=== PATIENT | female | born 1940 | race Caucasian/White ===

== ENCOUNTER 2017-02-23 11:59 | Observation (INO) ==
[2017-02-23] MEDS ORDERED: Acetaminophen 325 MG TABLET PO ONE (12:30)
--- NOTE | 2017-02-23 12:32 | Emergency Department Note ---
Disposition Clinical Impression: Elevated troponin UTI (urinary tract infection) Qualifiers: Urinary tract infection type: acute cystitis Hematuria presence: with hematuria Qualified Code(s): N30.01 - Acute cystitis with hematuria Fever Qualifiers: Fever type: unspecified Qualified Code(s): R50.9 - Fever, unspecified Disposition: Admitted As Inpatient Condition: Good Referrals: Jose Khan MD [Primary Care Provider] - Forms: ED Satisfaction Letter Time of Disposition: 16:52 SOB HPI - General Chief Complaint: ED Shortness of Breath/Dyspnea Stated Complaint: diff breathing/fever Time Seen by Provider: 02/23/17 12:25 Source: EMS Mode of arrival: EMS Limitations: altered mental status (Her baseline is that she is confused and bedridden.) Nursing Notes Reviewed: Yes Vital Signs Reviewed: Yes - History of Present Illness 76-year-old white female sent from the senior living to be evaluated for difficulty breathing. He was noted to be tachypneic when she was evaluated this morning. The patient is confused at baseline, oriented to person only. She is nonambulatory. It is difficult to tell whether her answers are not reliable or not. She does know her name and date of . She denies chest pain. She admits to shortness of breath and weakness. She denies abdominal pain. Pt Subjective Complaint: shortness of breath Onset (ago): day(s) (Onset today) Context: other (Found at senior living with difficulty breathing.) Severity: moderate Consistency/Duration: constant Improves with: oxygen Worsens with: lying flat Associated symptoms: Reports: fever Treatment prior to arrival: oxygen Cough present: No - Related Data Home oxygen amount: none Home Medications Medication Instructions Recorded Confirmed ALPRAZolam [Xanax 0.5 MG Tablet] 0.5 mg PO BID 02/23/17 02/23/17 Albuterol Neb [Proventil Neb] 2.5 mg IH Q4HR PRN 02/23/17 02/23/17 Amantadine HCl [Amantadine] 100 mg PO BID 02/23/17 02/23/17 Ascorbate Calcium [Vitamin C] 500 mg PO DAILY 02/23/17 02/23/17 Bisacodyl [Dulcolax] 10 mg RC DAILY PRN 02/23/17 02/23/17 Calcium Carbonate [Calcium] 600 mg PO BID 02/23/17 02/23/17 Carbidopa/Levodopa 1 each PO TID 02/23/17 02/23/17 [Carbidopa-Levodopa 10-100 Tab] Cholecalciferol (D-3) [Vitamin D] 1,000 unit PO DAILY 02/23/17 02/23/17 Famotidine [Pepcid] 20 mg PO BID 02/23/17 02/23/17 HYDROcodone/Acet 5/325 mg [[place] 1 tab PO Q6H PRN 02/23/17 02/23/17 5-325 mg] Loratadine [Claritin] 10 mg PO DAILY 02/23/17 02/23/17 Lovastatin [Mevacor] 20 mg PO DAILY 02/23/17 02/23/17 Magnesium Hydroxide [Milk of 20 ml PO HS PRN 02/23/17 02/23/17 Magnesia] Metoprolol [Lopressor] 12.5 mg PO BID 02/23/17 02/23/17 Mv W-Ca/Iron/FA/Lutein/Hrb#179 1 each PO DAILY 02/23/17 02/23/17 [Surya Multivit For Women Caplet] Nitroglycerin [Nitrostat] 0.4 mg SL ONCE 02/23/17 02/23/17 [place]-3S/Dha/Epa/Fish Oil [Fish 1 each PO DAILY 02/23/17 02/23/17 Oil [place]-3 Softgel] Sennosides [Senna] 8.6 mg PO BID 02/23/17 02/23/17 Venlafaxine HCl [Venlafaxine HCl 37.5 mg PO BID 02/23/17 02/23/17 ER] risperiDONE [Risperdal] 2 mg PO BID 02/23/17 02/23/17 Allergies Allergy/AdvReac Type Severity Reaction Status Date / Time cefuroxime [From Ceftin] Allergy Hives Verified 02/23/17 12:16 Penicillins [PCN] Allergy Hives Verified 02/23/17 12:16 Limitations: ROS unobtainable due to patients medical condition (Patient is demented and confused at baseline.) Past Medical History - Past Medical History Medical history: Reports: COPD, dementia, hypertension Psychiatric history: Reports: anxiety, depression - Social History Smoking Status: Former smoker Alcohol use: Reports: none Drug use: Reports: none Physical Exam - General Limitations: altered mental status General appearance: alert, other (Appears mildly dyspneic) - Head Head exam: atraumatic, normocephalic - Eye Eye exam: Present: PERRL, EOMI. Absent: scleral icterus, conjunctival injection - ENT ENT exam: normal oropharynx, mucous membranes moist, TM's normal bilaterally - Neck Neck exam: Present: normal inspection, full ROM, trachea midline. Absent: tenderness, lymphadenopathy - Respiratory Respiratory exam: Present: respiratory distress, other (Decreased breath sounds in bases and mid lung field bilaterally). Absent: wheezes, accessory muscle use , prolonged expiratory phase - Cardiovascular Cardiovascular exam: Present: regular rate, tachycardia. Absent: systolic murmur, diastolic murmur, gallop - Abdominal Exam Abdominal exam: Present: soft, Non-Tender, normal bowel sounds. Absent: organomegaly, mass - Extremities Exam Extremities exam: Present: normal capillary refill, other (Muscle atrophy of her lower extremities.). Absent: pedal edema - Neurological Exam Neurological exam: Present: motor sensory deficit (Diffusely weak with atrophy. Symmetrical motor function.). Absent: alert (Oriented to person, not place or time.) - Psychiatric Psychiatric exam: Present: agitated, flat affect - Skin Skin exam: Present: warm, dry. Absent: cyanosis, diaphoresis Course - Reevaluation(s) Reevaluation #1: Critical troponin of 0.21 called from lab. Patient is not having chest pain. There is no evidence of congestive heart chest x-ray. Her urinalysis shows too numerous to count red cells and too numerous to count white cells. IV Levaquin has been ordered. A repeat 2 hour troponin has been ordered. Time: 13:45 Reevaluation #2: Discussed with Dr. Robins. He accepts the patient for admission. Also of note is that her blood pressure did drop. She had a systolic blood pressure in the low 90s. She will be given a normal saline bolus and maintenance fluids will be started. Time: 16:49 Vital Signs Temperature 100.8 F H 02/23/17 12:06 Pulse Rate 119 02/23/17 12:06 Respiratory Rate 26 02/23/17 12:06 Blood Pressure 159/90 02/23/17 12:06 O2 Sat by Pulse Oximetry 97 02/23/17 12:06 Temperature 98.6 F 02/23/17 16:46 Pulse Rate 94 02/23/17 16:46 Respiratory Rate 25 02/23/17 16:46 Blood Pressure 92/41 02/23/17 16:46 O2 Sat by Pulse Oximetry 96 02/23/17 16:46 Oxygen Delivery Oxygen Delivery Nasal Cannula Shortness of Breath/Dyspnea - MDM Narrative Medical decision making narrative: Differential includes but is not limited to pneumonia, sepsis, urinary tract infection, pulmonary embolus, congestive heart failure, bronchitis with bronchospasm. The patient has a fever and findings consistent with urinary tract infection which is likely source for fever. She does not complain of chest pain. She has nonspecific ST-T changes on her EKG. Her initial troponin was 0.21, her second troponin is 0.19. Because of her confusion she is an unreliable historian, but she denies having chest pain when asked by both myself and nursing. - Lab Data Lab results reviewed: Yes I reviewed the patient's lab results. Result diagrams: 02/23/17 13:06 02/23/17 13:06 Lab Results 02/23/17 02/23/17 02/23/17 Range/Units 13:02 13:06 13:06 WBC 12.7 H (4.3-11.1) K/mcL RBC 4.12 (3.82-4.97) M/mcL Hgb 12.3 (11.5-15.4) g/dL Hct 37.6 (35.3-44.9) % MCV 91.3 (83.0-100.0) fL MCH 29.9 (28.0-33.3) pg MCHC 32.7 (31.6-35.5) g/dL RDW 13.4 (11.5-14.5) % Plt Count 229 (140-400) K/mcL MPV 10.0 (9.4-12.4) fL Immature Gran % 0.4 (0-4) % Seg Neutrophils % 95.0 % Lymphocytes % 2.0 % Monocytes % 2.4 % Eosinophils % 0.0 % Basophils % 0.2 % Neutrophils # 12.1 H (1.6-8.9) K/mcL Lymphocytes # 0.3 L (0.6-4.6) K/mcL Monocytes # 0.3 (0.0-1.3) K/mcL Eosinophils # 0.0 (0.0-0.6) K/mcL Basophils # 0.0 (0.0-0.2) K/mcL ABG pH (7.32-7.45) pH Units ABG pCO2 (35-45) mmHg ABG pO2 (85-104) mmHg ABG HCO3 (21-27) mEQ/L ABG Total CO2 (20-26) mEq/L ABG O2 Saturation (95-98) % ABG Base Excess (-2.0 to 3.0) mEq/L VBG Lactic Acid (0.5-2.2) mmol/L Liter Flow L/MIN Blood Gas Modality Inspired O2 % Sodium 137 (136-145) mEq/L Potassium 4.2 (3.5-4.5) mEq/L Chloride 100 (98-109) mEq/L Carbon Dioxide 26 (19-29) mEq/L BUN 23 H (7-20) mg/dL Creatinine 1.11 (0.57-1.11) mg/dL Est GFR ( Amer) 58 L (> 60) Est GFR (Non-Af Amer) 48 L (> 60) BUN/Creatinine Ratio 21 (6-26) Glucose 128 H (70-99) mg/dL Calculated Osmolality 289 (280-300) Calcium 9.6 (8.6-10.8) mg/dL Total Bilirubin 0.8 (0.2-1.2) mg/dL AST 17 (5-34) Units/L ALT 11 (0-55) Units/L Alkaline Phosphatase 167 H (38-126) Units/L Troponin I (0-0.03) ng/mL B-Natriuretic Peptide (0-100) pg/mL Serum Total Protein 6.7 (6.0-8.3) g/dL Albumin 2.7 L (3.5-5.0) g/dL Globulin 4.0 H (2.4-3.5) g/dL Albumin/Globulin Ratio 0.7 L (1.1-2.2) Urine Color Dark Yellow (Yellow) Urine Clarity Cloudy A (Clear) Urine pH 6.5 (5.0-8.0) pH Units Ur Specific [place] >= 1.030 H (1.010-1.025) Urine Protein 100 H (Neg-Trace) mg/dL Urine Glucose (UA) Normal (Normal) mg/dL Urine Ketones 40 H (Negative) mg/dL Urine Blood Moderate H (Negative) Urine Nitrite Positive A (Negative) Urine Bilirubin Negative (Negative) Urine Urobilinogen Normal (Normal) mg/dL Ur Leukocyte Esterase Large H (Negative) Urine Microscopic RBC TNTC H (0-3) per hpf Urine Microscopic WBC TNTC H (0-3) per hpf Ur Squamous Epith Cells Few (None-Few) per lpf Calcium Oxalate Crystal Present Urine Bacteria Moderate H (None-Few) per hpf Granular Casts Few H (None Seen) per lpf Ur Culture Indicated? YES A (NO) 02/23/17 02/23/17 02/23/17 Range/Units 13:06 13:06 13:06 WBC (4.3-11.1) K/mcL RBC (3.82-4.97) M/mcL Hgb (11.5-15.4) g/dL Hct (35.3-44.9) % MCV (83.0-100.0) fL MCH (28.0-33.3) pg MCHC (31.6-35.5) g/dL RDW (11.5-14.5) % Plt Count (140-400) K/mcL MPV (9.4-12.4) fL Immature Gran % (0-4) % Seg Neutrophils % % Lymphocytes % % Monocytes % % Eosinophils % % Basophils % % Neutrophils # (1.6-8.9) K/mcL Lymphocytes # (0.6-4.6) K/mcL Monocytes # (0.0-1.3) K/mcL Eosinophils # (0.0-0.6) K/mcL Basophils # (0.0-0.2) K/mcL ABG pH 7.48 H (7.32-7.45) pH Units ABG pCO2 37 (35-45) mmHg ABG pO2 78 L (85-104) mmHg ABG HCO3 27.3 H (21-27) mEQ/L ABG Total CO2 28.4 H (20-26) mEq/L ABG O2 Saturation 96 (95-98) % ABG Base Excess 3.8 H (-2.0 to 3.0) mEq/L VBG Lactic Acid 1.7 (0.5-2.2) mmol/L Liter Flow 3 L/MIN Blood Gas Modality [place] Inspired O2 32 % Sodium (136-145) mEq/L Potassium (3.5-4.5) mEq/L Chloride (98-109) mEq/L Carbon Dioxide (19-29) mEq/L BUN (7-20) mg/dL Creatinine (0.57-1.11) mg/dL Est GFR ( Amer) (> 60) Est GFR (Non-Af Amer) (> 60) BUN/Creatinine Ratio (6-26) Glucose (70-99) mg/dL Calculated Osmolality (280-300) Calcium (8.6-10.8) mg/dL Total Bilirubin (0.2-1.2) mg/dL AST (5-34) Units/L ALT (0-55) Units/L Alkaline Phosphatase (38-126) Units/L Troponin I 0.21 H* (0-0.03) ng/mL B-Natriuretic Peptide 154 H (0-100) pg/mL Serum Total Protein (6.0-8.3) g/dL Albumin (3.5-5.0) g/dL Globulin (2.4-3.5) g/dL Albumin/Globulin Ratio (1.1-2.2) Urine Color (Yellow) Urine Clarity (Clear) Urine pH (5.0-8.0) pH Units Ur Specific [place] (1.010-1.025) Urine Protein (Neg-Trace) mg/dL Urine Glucose (UA) (Normal) mg/dL Urine Ketones (Negative) mg/dL Urine Blood (Negative) Urine Nitrite (Negative) Urine Bilirubin (Negative) Urine Urobilinogen (Normal) mg/dL Ur Leukocyte Esterase (Negative) Urine Microscopic RBC (0-3) per hpf Urine Microscopic WBC (0-3) per hpf Ur Squamous Epith Cells (None-Few) per lpf Calcium Oxalate Crystal Urine Bacteria (None-Few) per hpf Granular Casts (None Seen) per lpf Ur Culture Indicated? (NO) 02/23/17 Range/Units 15:15 WBC (4.3-11.1) K/mcL RBC (3.82-4.97) M/mcL Hgb (11.5-15.4) g/dL Hct (35.3-44.9) % MCV (83.0-100.0) fL MCH (28.0-33.3) pg MCHC (31.6-35.5) g/dL RDW (11.5-14.5) % Plt Count (140-400) K/mcL MPV (9.4-12.4) fL Immature Gran % (0-4) % Seg Neutrophils % % Lymphocytes % % Monocytes % % Eosinophils % % Basophils % % Neutrophils # (1.6-8.9) K/mcL Lymphocytes # (0.6-4.6) K/mcL Monocytes # (0.0-1.3) K/mcL Eosinophils # (0.0-0.6) K/mcL Basophils # (0.0-0.2) K/mcL ABG pH (7.32-7.45) pH Units ABG pCO2 (35-45) mmHg ABG pO2 (85-104) mmHg ABG HCO3 (21-27) mEQ/L ABG Total CO2 (20-26) mEq/L ABG O2 Saturation (95-98) % ABG Base Excess (-2.0 to 3.0) mEq/L VBG Lactic Acid (0.5-2.2) mmol/L Liter Flow L/MIN Blood Gas Modality Inspired O2 % Sodium (136-145) mEq/L Potassium (3.5-4.5) mEq/L Chloride (98-109) mEq/L Carbon Dioxide (19-29) mEq/L BUN (7-20) mg/dL Creatinine (0.57-1.11) mg/dL Est GFR ( Amer) (> 60) Est GFR (Non-Af Amer) (> 60) BUN/Creatinine Ratio (6-26) Glucose (70-99) mg/dL Calculated Osmolality (280-300) Calcium (8.6-10.8) mg/dL Total Bilirubin (0.2-1.2) mg/dL AST (5-34) Units/L ALT (0-55) Units/L Alkaline Phosphatase (38-126) Units/L Troponin I 0.19 H* (0-0.03) ng/mL B-Natriuretic Peptide (0-100) pg/mL Serum Total Protein (6.0-8.3) g/dL Albumin (3.5-5.0) g/dL Globulin (2.4-3.5) g/dL Albumin/Globulin Ratio (1.1-2.2) Urine Color (Yellow) Urine Clarity (Clear) Urine pH (5.0-8.0) pH Units Ur Specific [place] (1.010-1.025) Urine Protein (Neg-Trace) mg/dL Urine Glucose (UA) (Normal) mg/dL Urine Ketones (Negative) mg/dL Urine Blood (Negative) Urine Nitrite (Negative) Urine Bilirubin (Negative) Urine Urobilinogen (Normal) mg/dL Ur Leukocyte Esterase (Negative) Urine Microscopic RBC (0-3) per hpf Urine Microscopic WBC (0-3) per hpf Ur Squamous Epith Cells (None-Few) per lpf Calcium Oxalate Crystal Urine Bacteria (None-Few) per hpf Granular Casts (None Seen) per lpf Ur Culture Indicated? (NO) - Radiology Data Radiology results reviewed: Yes I reviewed the patient's radiology results. - EKG Data EKG attestation: Yes I reviewed and interpreted this EKG. EKG results narrative: Sinus tachycardia, rate of 119, age undetermined inferior infarct. Nonspecific ST-T changes. Rhythm strip shows sinus tachycardia with a rate of 119, MN interval 166 ms, QRS is 73 ms with no other ectopy as interpreted by me.
[2017-02-23 13:18] LABS: Basophils % 0.2 %; Hematocrit 37.6 % (35.3-44.9); Hemoglobin 12.3 g/dL (11.5-15.4); Immature Granulocytes % 0.4 % (0-4); Lymphocytes # 0.3 K/mcL (0.6-4.6); Mean Corpuscular HGB Conc 32.7 g/dL (31.6-35.5); Mean Corpuscular Hemoglobin 29.9 pg (28.0-33.3); Mean Corpuscular Volume 91.3 fL (83.0-100.0); Monocytes # 0.3 K/mcL (0.0-1.3); Monocytes % 2.4 %; Neutrophils # 12.1 K/mcL (1.6-8.9); Platelet Count 229 K/mcL (140-400); Red Blood Count 4.12 M/mcL (3.82-4.97); Red Cell Distribution Width 13.4 % (11.5-14.5)
[2017-02-23 13:27] LABS: Bilirubin,Urine Negative (Negative); Blood,Urine Moderate (Negative); Clarity,Urine Cloudy (Clear); Color,Urine Dark Yellow (Yellow); Glucose,Urine (UA) Normal (Normal); Ketones,Urine 40 mg/dL (Negative); Leukocyte Esterase,Urine Large (Negative); Nitrite,Urine Positive (Negative); PH,Urine 6.5 pH Units (5.0-8.0); Protein,Urine 100 mg/dL (Neg-Trace); Specific Gravity,Urine >= 1.030 (1.010-1.025); Urobilinogen,Urine Normal (Normal)
[2017-02-23 13:36] LABS: Albumin 2.7 g/dL (3.5-5.0); Albumin/Globulin Ratio 0.7 (1.1-2.2); Bilirubin,Total 0.8 mg/dL (0.2-1.2); Calcium 9.6 mg/dL (8.6-10.8); Potassium 4.2 mEq/L (3.5-4.5); Total Protein 6.7 g/dL (6.0-8.3)
[2017-02-23 13:37] LABS: Calcium Oxalate Crystals,Urine Present; Granular Casts,Urine Few per lpf (None Seen); RBC,Urine TNTC per hpf (0-3); Squamous Epithelial Cell,Urine Few per lpf (None-Few); WBC,Urine TNTC per hpf (0-3)
[2017-02-23 13:39] LABS: ABG HCO3 27.3 mEQ/L (21-27); ABG PCO2 37 mmHg (35-45); ABG PH 7.48 pH Units (7.32-7.45); ABG PO2 78 mmHg (85-104)
[2017-02-23 13:40] LABS: Bacteria,Urine Moderate per hpf (None-Few)
[2017-02-23 13:40] LABS: ABG Base Excess 3.8 mEq/L (-2.0 to 3.0); ABG Oxygen Saturation 96 % (95-98); ABG TCO2 28.4 mEq/L (20-26); Blood Gas FiO2 32 %; Blood Gas Liter Flow 3 L/MIN
[2017-02-23] MEDS ORDERED: 0.9 % Sodium Chloride 1,000 ML IVC ONE (13:43)
[2017-02-23] MEDS ORDERED: Levofloxacin 500 MG/100 ML 500 MG/100 ML BAG IVPB ONE (13:44)
[2017-02-23] MEDS ORDERED: Ibuprofen 600 MG TABLET PO ONE (14:55)
[2017-02-23] MEDS ORDERED: 0.9 % Sodium Chloride 500 ML IVC ONE ×2 (16:47→16:49)
[2017-02-23] MEDS ORDERED: 0.9 % Sodium Chloride 1,000 ML IVC SCH ×3 (17:00→17:32)
[2017-02-23] MEDS ORDERED: MOM Conc 10 ML UD.LIQ PO PRN (17:32)
[2017-02-23] MEDS ORDERED: Acetaminophen 325 MG TABLET PO PRN (17:32)
[2017-02-23] MEDS ORDERED: Ibuprofen 400 MG TABLET PO PRN (17:32)
[2017-02-23] MEDS ORDERED: Bisacodyl 10 MG RECTAL SUPPOSITORY RC PRN (17:32)
[2017-02-23] MEDS ORDERED: Nitroglycerin 0.4 MG TAB.SUBL SL SCH (17:32)
[2017-02-23] MEDS ORDERED: Naloxone 0.4 MG/ML INJ IVP PRN (17:32)
[2017-02-23] MEDS: 0.9 % Sodium Chloride 1,000 ML IVC SCH (18:07)
[2017-02-23] MEDS ORDERED: Albuterol 2.5 MG/3 ML NEBULIZER IH PRN (20:00)
[2017-02-23] MEDS: ALPRAZolam 0.5 MG TABLET PO SCH (21:46)
[2017-02-23] MEDS: Sennosides 8.6 MG TABLET PO SCH (21:48)
[2017-02-23] MEDS: Famotidine 20 MG TABLET PO SCH ×2 (21:48→21:54)
[2017-02-23] MEDS: risperiDONE 1 MG TABLET PO SCH (21:48)
[2017-02-23] MEDS: *HR* HYDROcodone/Acet 5/325 mg TABLET PO PRN (22:21)
[2017-02-24] MEDS: 0.9 % Sodium Chloride 1,000 ML IVC SCH (05:34)
[2017-02-24] MEDS: *HR* HYDROcodone/Acet 5/325 mg TABLET PO PRN (05:40)
[2017-02-24] MEDS: risperiDONE 1 MG TABLET PO SCH (08:40)
[2017-02-24] MEDS: ALPRAZolam 0.5 MG TABLET PO SCH (08:42)
[2017-02-24] MEDS: Sennosides 8.6 MG TABLET PO SCH (08:42)
[2017-02-24] MEDS ORDERED: Multivit/Ca/Min/Fe/FA 1 TAB TABLET PO SCH (09:00)
[2017-02-24] MEDS ORDERED: EPA PO SCH (09:00)
[2017-02-24] MEDS ORDERED: OMEGA PO SCH (09:00)
[2017-02-24] MEDS ORDERED: Cholecalciferol (D-3) 1,000 UNIT TABLET PO SCH (09:00)
[2017-02-24] MEDS ORDERED: Loratadine 10 MG TABLET PO SCH (09:00)
[2017-02-24] MEDS ORDERED: DHA PO SCH (09:00)
[2017-02-24] MEDS ORDERED: Ascorbic Acid 500 MG TABLET PO SCH (09:00)
[2017-02-24] MEDS ORDERED: FISH OIL PO SCH (09:00)
[2017-02-24] MEDS ORDERED: 0.9 % Sodium Chloride 1,000 ML IVC ONE ×2 (09:24→12:17)
[2017-02-24] MEDS ORDERED: Aztreonam 1,000 MG in D5% in Water (Mini-Bag+) 100 ML IVPB SCH (09:39)
[2017-02-24 10:07] LABS: ABG Base Excess -5.1 mEq/L (-2.0 to 3.0); ABG HCO3 20.5 mEQ/L (21-27); ABG PCO2 37 mmHg (35-45); ABG PH 7.35 pH Units (7.32-7.45); ABG PO2 79 mmHg (85-104); ABG TCO2 21.7 mEq/L (20-26)
[2017-02-24 10:08] LABS: ABG Oxygen Saturation 95 % (95-98); Blood Gas FiO2 28 %; Blood Gas Liter Flow 2 L/MIN
[2017-02-24] MEDS ORDERED: 0.9 % Sodium Chloride 500 ML IVC ONE ×2 (11:08→11:58)
[2017-02-24 11:30] LABS: Hematocrit 28.9 % (35.3-44.9); Hemoglobin 9.3 g/dL (11.5-15.4); Mean Corpuscular HGB Conc 32.2 g/dL (31.6-35.5); Mean Corpuscular Hemoglobin 30.1 pg (28.0-33.3); Mean Corpuscular Volume 93.5 fL (83.0-100.0); Mean Platelet Volume 10.8 fL (9.4-12.4); Platelet Count 137 K/mcL (140-400); Red Blood Count 3.09 M/mcL (3.82-4.97); Red Cell Distribution Width 13.7 % (11.5-14.5)
[2017-02-24 11:42] LABS: BUN/Creatinine Ratio 22 (6-26); Blood Urea Nitrogen 24 mg/dL (7-20); Calcium 8.1 mg/dL (8.6-10.8); Carbon Dioxide 18 mEq/L (19-29); Chloride 108 mEq/L (98-109); Glucose 92 mg/dL (70-99); Osmolality,Calculated 286 (280-300); Potassium 3.8 mEq/L (3.5-4.5); Sodium 136 mEq/L (136-145); eGFR For African Americans > 60 (> 60); eGFR For Non-African Americans 50 (> 60)
[2017-02-24 11:48] LABS: Lymphocytes # 0.5 K/mcL (0.6-4.6); Neutrophils # 8.2 K/mcL (1.6-8.9); Toxic Granulation Present (Not Present)
--- NOTE | 2017-02-24 12:30 | Internal Med History&Physical ---
Date of Encounter: 02/24/17 Time of Encounter: 09:15 Assessment and Plan (1) UTI (urinary tract infection) Current visit: Yes Status: Acute She has been started on Levaquin. I added Azactam with preliminary urine culture showing 2 gram-negative rods. Qualifiers: Urinary tract infection type: acute cystitis Hematuria presence: with hematuria Qualified Code(s): N30.01 - Acute cystitis with hematuria (2) Fever Current visit: Yes Status: Acute She was given Levaquin and Azactam as per above. Blood cultures have just returned showing gram-positive rods in 2 out of 2 cultures. Because of persistent hypotension will transfer her to [facility] ICU. Qualifiers: Fever type: unspecified Qualified Code(s): R50.9 - Fever, unspecified (3) Elevated troponin Current visit: Yes Status: Acute Troponin was 0.21 in emergency room but has trended downward. EKG does not show acute findings of [place]. Internal Medicine - H&P: HPI Chief complaint: Dyspnea Admitted From: Long-term Nursing Facility Plans for Post Hospital Care: Transfer Custodial Care History of present illness: Ms. Kan is a 76 year old female who came to emergency room from the half-way after staff brought her to be complaining of dyspnea. She was confused in the emergency room and cannot supply additional history. She is not ambo toward the half-way. She denied chest pain anemia emergency room. She was evaluated and found to have leukocytosis with left shift. She was given IV Levaquin and [facility] for [facility] care needs. She cannot supply further history at this time. Past Med Surg Social Fam HX - Past Medical History Medical history: COPD, dementia, hypertension Psychiatric history: anxiety, depression - Social History Smoking Status: Former smoker Smokeless Tobacco Status: No Alcohol use: none Drug use: none Internal Medicine - H&P: Meds ALPRAZolam [Xanax 0.5 MG Tablet] 0.5 mg PO BID 02/23/17 [History] Albuterol Neb [Proventil Neb] 2.5 mg IH Q4HR PRN 02/23/17 [History] Amantadine HCl [Amantadine] 100 mg PO BID 02/23/17 [History] Ascorbate Calcium [Vitamin C] 500 mg PO DAILY 02/23/17 [History] Bisacodyl [Dulcolax] 10 mg RC DAILY PRN 02/23/17 [History] Calcium Carbonate [Calcium] 600 mg PO BID 02/23/17 [History] Carbidopa/Levodopa [Carbidopa-Levodopa 10-100 Tab] 1 each PO TID 02/23/17 [ History] Cholecalciferol (D-3) [Vitamin D] 1,000 unit PO DAILY 02/23/17 [History] Famotidine [Pepcid] 20 mg PO BID 02/23/17 [History] HYDROcodone/Acet 5/325 mg [[place] 5-325 mg] 1 tab PO Q6H PRN 02/23/17 [History] Loratadine [Claritin] 10 mg PO DAILY 02/23/17 [History] Lovastatin [Mevacor] 20 mg PO DAILY 02/23/17 [History] Magnesium Hydroxide [Milk of Magnesia] 20 ml PO HS PRN 02/23/17 [History] Metoprolol [Lopressor] 12.5 mg PO BID 02/23/17 [History] Mv W-Ca/Iron/FA/Lutein/Hrb#179 [Surya Multivit For Women Caplet] 1 each PO DAILY 02/23/17 [History] Nitroglycerin [Nitrostat] 0.4 mg SL ONCE 02/23/17 [History] [place]-3S/Dha/Epa/Fish Oil [Fish Oil [place]-3 Softgel] 1 each PO DAILY 02/23/17 [ History] Sennosides [Senna] 8.6 mg PO BID 02/23/17 [History] Venlafaxine HCl [Venlafaxine HCl ER] 37.5 mg PO BID 02/23/17 [History] risperiDONE [Risperdal] 2 mg PO BID 02/23/17 [History] Allergies cefuroxime [From Ceftin] Allergy (Verified 02/23/17 12:16) Hives Penicillins [PCN] Allergy (Verified 02/23/17 12:16) Hives All Systems PM: A 10-system review of systems was performed and is negative for pertinent findings except as documented above in the HPI. - Constitutional Vitals: Temp Pulse Resp BP Pulse Ox 99.3 F 95 30 56/41 98 02/24/17 11:34 02/24/17 12:05 02/24/17 12:05 02/24/17 12:05 02/24/17 12:05 Exam: No: She is a well-developed well-nourished female lying in bed who appears in no severe distress. She initially complained of some stomach discomfort but later stated it was improved HEENT: Head is atraumatic and normal cephalic. Eyes: EOMI. There is no scleral icterus. Mouth: Mucosa is moist. Neck: Supple and nontender. There is no thyromegaly or adenopathy noted. Heart: Regular without murmurs gallops or ectopics. Tones are soft. Heart rate is approximately 108/m on the telemetry Lungs: No wheezes or crackles are heard. Abdomen: Soft and nontender. Bowel sounds are present. No masses or guarding are noted. Extremities: She has bilateral foot drop. Dorsalis pedis and posterior tibial pulses are trace palpable bilaterally. She has adequate capillary refill of her feet. Neurologic: Mental status: She is able to answer a few questions but is not a reliable historian. Cranial nerves: Facial movements are minimal but symmetric. Tongue protrudes midline. Motor: She has equal arm tone on range of motion of her arms. No further neurologic testing attempted. Skin: Warm and dry. Internal Med - H&P Results - Labs CBC & Chem 7: 02/24/17 09:18 02/24/17 09:18 Labs: Short CBC 02/24/17 Range/Units 09:18 WBC 8.7 (4.3-11.1) K/mcL Hgb 9.3 L D (11.5-15.4) g/dL Hct 28.9 L (35.3-44.9) % Plt Count 137 L (140-400) K/mcL Neutrophils # 8.2 (1.6-8.9) K/mcL BMP 02/24/17 09:18 Sodium 136 Potassium 3.8 Chloride 108 Carbon Dioxide 18 L BUN 24 H Creatinine 1.07 Glucose 92 Calcium 8.1 L D Cardiac Enzymes 02/23/17 02/24/17 Range/Units 21:08 03:45 Troponin I 0.15 H* 0.09 H* (0-0.03) ng/mL - ABG Interpretation ABG results: 02/24/17 09:22 ABG pH 7.35 ABG pCO2 37 ABG pO2 79 L ABG HCO3 20.5 L ABG Total CO2 21.7 ABG O2 Saturation 95 ABG Base Excess -5.1 L
[2017-02-24] MEDS ORDERED: Phenylephrine 10 MG in 0.9 % Sodium Chloride 250 ML IVC SCH (13:00)
--- NOTE | 2017-02-24 14:26 | Discharge Summary ---
Date of Encounter: 02/24/17 Time of Encounter: 14:00 - Discharge Diagnosis (1) Sepsis Priority: Primary Status: Acute Qualifiers: Sepsis type: sepsis due to unspecified organism Qualified Code(s): A41.9 - Sepsis, unspecified organism (2) UTI (urinary tract infection) Priority: Secondary Status: Acute Qualifiers: Urinary tract infection type: acute cystitis Hematuria presence: with hematuria Qualified Code(s): N30.01 - Acute cystitis with hematuria (3) Elevated troponin Priority: Secondary Status: Acute - Discharge Medications Home Medications: ALPRAZolam [Xanax 0.5 MG Tablet] 0.5 mg PO BID 02/23/17 [History] Albuterol Neb [Proventil Neb] 2.5 mg IH Q4HR PRN 02/23/17 [History] Amantadine HCl [Amantadine] 100 mg PO BID 02/23/17 [History] Ascorbate Calcium [Vitamin C] 500 mg PO DAILY 02/23/17 [History] Bisacodyl [Dulcolax] 10 mg RC DAILY PRN 02/23/17 [History] Calcium Carbonate [Calcium] 600 mg PO BID 02/23/17 [History] Carbidopa/Levodopa [Carbidopa-Levodopa 10-100 Tab] 1 each PO TID 02/23/17 [ History] Cholecalciferol (D-3) [Vitamin D] 1,000 unit PO DAILY 02/23/17 [History] Famotidine [Pepcid] 20 mg PO BID 02/23/17 [History] HYDROcodone/Acet 5/325 mg [[place] 5-325 mg] 1 tab PO Q6H PRN 02/23/17 [History] Loratadine [Claritin] 10 mg PO DAILY 02/23/17 [History] Lovastatin [Mevacor] 20 mg PO DAILY 02/23/17 [History] Magnesium Hydroxide [Milk of Magnesia] 20 ml PO HS PRN 02/23/17 [History] Metoprolol [Lopressor] 12.5 mg PO BID 02/23/17 [History] Mv W-Ca/Iron/FA/Lutein/Hrb#179 [Surya Multivit For Women Caplet] 1 each PO DAILY 02/23/17 [History] Nitroglycerin [Nitrostat] 0.4 mg SL ONCE 02/23/17 [History] [place]-3S/Dha/Epa/Fish Oil [Fish Oil [place]-3 Softgel] 1 each PO DAILY 02/23/17 [ History] Sennosides [Senna] 8.6 mg PO BID 02/23/17 [History] Venlafaxine HCl [Venlafaxine HCl ER] 37.5 mg PO BID 02/23/17 [History] risperiDONE [Risperdal] 2 mg PO BID 02/23/17 [History] Allergies/Adverse Reactions: Allergies cefuroxime [From Ceftin] Allergy (Verified 02/23/17 12:16) Hives Penicillins [PCN] Allergy (Verified 02/23/17 12:16) Hives Date of admission: 02/23/17 17:29 Primary care physician: Jose Khan MD Consults: 02/23/17 18:27 Consult to Flight Communications Officer [CONS] Routine Reason for SW Consult: discharge planning - Patient Status Disposition: Transfer Other Condition: Good Functional capacity at discharge: bed bound - Discharge Instructions Hospital course: Ms. Kan is a 76 year old female who came to emergency room from the retirement after staff brought her to be complaining of dyspnea. She was confused in the emergency room and cannot supply additional history. She is not ambo toward the retirement. She denied chest pain anemia emergency room. She was evaluated and found to have leukocytosis with left shift. She was given IV Levaquin and admitted to [facility] floor for ongoing care needs. Initial orders were written by the emergency room physician. I saw her on February 24 and performed the history and physical. Shortly before I arrived to the hospital a rapid response was called because hypotension and elevated MUSE score. She was given 2 L of IV fluids over the next 2 hours with minimal response to fluid boluses. I spoke with [facility] boat outboard engine mechanic and he agreed to accept her in transfer. A phenylephrine drip was started. A left femoral central line was placed without difficulty. Preliminary urine culture showed 2 gram-negative rods. Preliminary blood culture showed 2 gram-positive rods. She was given Levaquin and emergency room. I gave her a dose of Azactam after viewing the preliminary urine culture. Further adjustment in antibiotics will be done by [facility] staff. Blood pressure had risen to systolic 81 with MAP 62 by the time of transfer. - Time Spent with Patient Total time spent providing and/or coordinating discharge services: - Constitutional Vitals: Temp Pulse Resp BP Pulse Ox 98.8 F 100 22 70/46 97 02/24/17 13:18 02/24/17 13:18 02/24/17 13:18 02/24/17 13:18 02/24/17 13:18
[2017-02-24 15:23] VITALS: BP 72/42
--- NOTE | 2017-02-24 16:38 | Pulmonology History & Physical ---
Date of Encounter: 02/24/17 Time of Encounter: 16:37 History of Present Illness HPI: Ms. Kan is a 76 year old female presenting to the ICU from [place]. She is being transferred for urosepsis. A central line was placed and patient was on pressors. However these ran out during transport. On her arrival here she was hypotensive. We started Levophed. Bonded well to this. She appears to be mentating to her normal state. She is pleasantly demented. She does complain of a diffuse abdominal pain. She does guard while you palpate her abdomen in all quadrants. She has normal bowel sounds. Lung sounds are clear. We will place patient on vancomycin and Merrem. We will get another lactate as well as blood cultures. She did have 2 positive blood cultures as well as a positive urine culture. She is on several sedating medications. We will attempt to control the while she is here. Past Med Surg Social Fam HX - Past Medical History Medical history: COPD, dementia, hypertension Psychiatric history: anxiety, depression - Social History Smoking Status: Former smoker Smokeless Tobacco Status: No Alcohol use: none Drug use: none Medications and Allergies ALPRAZolam [Xanax 0.5 MG Tablet] 0.5 mg PO BID 02/23/17 [History] Albuterol Neb [Proventil Neb] 2.5 mg IH Q4HR PRN 02/23/17 [History] Amantadine HCl [Amantadine] 100 mg PO BID 02/23/17 [History] Ascorbate Calcium [Vitamin C] 500 mg PO DAILY 02/23/17 [History] Bisacodyl [Dulcolax] 10 mg RC DAILY PRN 02/23/17 [History] Calcium Carbonate [Calcium] 600 mg PO BID 02/23/17 [History] Carbidopa/Levodopa [Carbidopa-Levodopa 10-100 Tab] 1 each PO TID 02/23/17 [ History] Cholecalciferol (D-3) [Vitamin D] 1,000 unit PO DAILY 02/23/17 [History] Famotidine [Pepcid] 20 mg PO BID 02/23/17 [History] HYDROcodone/Acet 5/325 mg [Corn 5-325 mg] 1 tab PO Q6H PRN 02/23/17 [History] Loratadine [Claritin] 10 mg PO DAILY 02/23/17 [History] Lovastatin [Mevacor] 20 mg PO DAILY 02/23/17 [History] Magnesium Hydroxide [Milk of Magnesia] 20 ml PO HS PRN 02/23/17 [History] Metoprolol [Lopressor] 12.5 mg PO BID 02/23/17 [History] Mv W-Ca/Iron/FA/Lutein/Hrb#179 [[place] Multivit For Women Caplet] 1 each PO DAILY 02/23/17 [History] Nitroglycerin [Nitrostat] 0.4 mg SL ONCE 02/23/17 [History] [place]-3S/Dha/Epa/Fish Oil [Fish Oil [place]-3 Softgel] 1 each PO DAILY 02/23/17 [ History] Sennosides [Senna] 8.6 mg PO BID 02/23/17 [History] Venlafaxine HCl [Venlafaxine HCl ER] 37.5 mg PO BID 02/23/17 [History] risperiDONE [Risperdal] 2 mg PO BID 02/23/17 [History] Allergies cefuroxime [From Ceftin] Allergy (Verified 02/23/17 12:16) Hives Penicillins [PCN] Allergy (Verified 02/23/17 12:16) Hives All Systems: A 10-system review of systems was performed and is negative for pertinent findings except as documented above in the HPI. Physical Examination Vital Signs: Vital Signs, Last 4 Hours Temp Pulse Resp BP Pulse Ox 02/24/17 15:22 97.6 F 96 22 72/42 94 02/24/17 14:51 97.9 F 96 28 96/61 96 02/24/17 13:18 98.8 F 100 22 70/46 97 Results - Laboratory Findings CBC and BMP: 02/24/17 09:18 02/24/17 09:18 ABG ABG pH 7.35 pH Units (7.32-7.45) 02/24/17 09:22 ABG pCO2 37 mmHg (35-45) 02/24/17 09:22 ABG pO2 79 mmHg (85-104) L 02/24/17 09:22 ABG O2 Saturation 95 % (95-98) 02/24/17 09:22 Abnormal lab findings: Abnormal lab results RBC 3.09 M/mcL (3.82-4.97) L 02/24/17 09:18 Hgb 9.3 g/dL (11.5-15.4) L D 02/24/17 09:18 Hct 28.9 % (35.3-44.9) L 02/24/17 09:18 Plt Count 137 K/mcL (140-400) L 02/24/17 09:18 Band Neutrophils % 32.0 % (0-4) H 02/24/17 09:18 Lymphocytes # 0.5 K/mcL (0.6-4.6) L 02/24/17 09:18 Toxic Granulation Present (Not Present) A 02/24/17 09:18 ABG pO2 79 mmHg (85-104) L 02/24/17 09:22 ABG HCO3 20.5 mEQ/L (21-27) L 02/24/17 09:22 ABG Base Excess -5.1 mEq/L (-2.0 to 3.0) L 02/24/17 09:22 Carbon Dioxide 18 mEq/L (19-29) L 02/24/17 09:18 BUN 24 mg/dL (7-20) H 02/24/17 09:18 Est GFR (Non-Af Amer) 50 (> 60) L 02/24/17 09:18 POC Glucose 109 (58-89) H 02/24/17 10:48 Calcium 8.1 mg/dL (8.6-10.8) L D 02/24/17 09:18 Alkaline Phosphatase 167 Units/L (38-126) H 02/23/17 13:06 Troponin I 0.09 ng/mL (0-0.03) H* 02/24/17 03:45 B-Natriuretic Peptide 490 pg/mL (0-100) H 02/24/17 09:18 Albumin 2.7 g/dL (3.5-5.0) L 02/23/17 13:06 Globulin 4.0 g/dL (2.4-3.5) H 02/23/17 13:06 Albumin/Globulin Ratio 0.7 (1.1-2.2) L 02/23/17 13:06 Urine Clarity Cloudy (Clear) A 02/23/17 13:02 Ur Specific [place] >= 1.030 (1.010-1.025) H 02/23/17 13:02 Urine Protein 100 mg/dL (Neg-Trace) H 02/23/17 13:02 Urine Ketones 40 mg/dL (Negative) H 02/23/17 13:02 Urine Blood Moderate (Negative) H 02/23/17 13:02 Urine Nitrite Positive (Negative) A 02/23/17 13:02 Ur Leukocyte Esterase Large (Negative) H 02/23/17 13:02 Urine Microscopic RBC TNTC per hpf (0-3) H 02/23/17 13:02 Urine Microscopic WBC TNTC per hpf (0-3) H 02/23/17 13:02 Urine Bacteria Moderate per hpf (None-Few) H 02/23/17 13:02 Granular Casts Few per lpf (None Seen) H 02/23/17 13:02 Ur Culture Indicated? YES (NO) A 02/23/17 13:02
[2017-02-24] MEDS ORDERED: Vancomycin 1,000 MG in D5% in Water 250 ML IVPB SCH (17:00)
[2017-02-24] MEDS ORDERED: *HR* LORazepam 2 MG/ML VIAL IVP SCH (21:00)
[2017-02-25] MEDS ORDERED: Meropenem 1,000 MG in 0.9 % Sodium Chloride Mini Bag 100 ML IVPB SCH
--- NOTE | 2017-02-25 12:50 | Electrocardiograph Report ---
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
[2017-02-25] MEDS ORDERED: Levofloxacin 500 MG/100 ML 500 MG/100 ML BAG IVPB SCH (13:00)
--- NOTE | 2017-02-25 13:29 | Electrocardiograph Report ---
[address] [address] Test Date: 2017-02-24 Pat Name: Louisa Kan Department: 9202 Room: [facility] Gender: F [employer] Maker: Christ : 1940 Requested By: Musa Pena Order Number: [id number] Reading MD: Tod Cloud MD Measurements Intervals [place] Rate: 142 P: 59 [place]: 158 QRS: -13 QRSD: 85 T: 23 QT: 337 QTc: 419 Interpretive Statements SINUS TACHYCARDIA Electronically Signed On 02-25-2017 13:27:22 EDT by Tod Cloud MD
--- NOTE | 2017-02-25 14:26 | Electrocardiograph Report ---
[address] [address] Test Date: 2017-02-24 Pat Name: Louisa Kan Department: 9202 Room: [facility] Gender: F Character Actor: Navneet : 1940 Requested By: Jose Robins Order Number: [id number] Reading MD: Tod Cloud MD Measurements Intervals [place] Rate: 104 P: 71 [place]: 161 QRS: 0 QRSD: 84 T: 35 QT: 325 QTc: 385 Interpretive Statements SINUS TACHYCARDIA Electronically Signed On 02-25-2017 14:24:14 EDT by Tod Colud MD
== END 2017-02-24 15:20 | disposition short-term general hospital (02) ==
LOC: INPPIK 11:59 → EMEROOPIK 11:59 → INPPIK 17:58
PROVIDERS: ADMIT Internal Medicine; ATTEND Internal Medicine